=== PATIENT | male | born 1985 | race Two or more races ===

== ENCOUNTER 2024-10-18 10:17 | Emergency (ER) | payer MEDICAID, OTHER ==
[~2024-10-18] VITALS: Ht 170.2 cm; Wt 63.0 kg
[2024-10-18] MEDS: cefTRIAXone 1GM/50ML D5W 50 ML IV ONE (10:30)
--- NOTE | 2024-10-18 10:55 | ED.PDOC ---
History of Present Illness HPI Comments 39M presents to the ER w/ prior Hx of Jaw Sx "recently" and was associated to the c/c of jaw pain. Pt reports that he was at [facility] and was recently discharged but was never given medication to take for the jaw pain. Pt jaw is wired shut and has bilateral swelling. Pt notes that he has a follow up in 2 weeks but states that he does not remember the doctors name but has the phone number of [phone]. PMHx of High Lipids, HTN and Asthma. Denies chills, fever, N/V/D, SOB, CP or other associated symptom's, modifiers, or recent injuries or sick contact at this time. Chief Complaint: Jaw Pain Time Seen by MD: 10:45 Reviewed Notes: Nurses Notes, Medications, Allergies Allergies: Coded Allergies: NO KNOWN ALLERGIES (Unverified , 10/18/24) Information Source: Patient Mode of Arrival: Ambulatory Severity: Moderate Timing: Days Duration: Since onset, Days Prehospital treatment: None Past Medical History PAST MEDICAL HISTORY: Asthma, High Lipids, HTN Surgical History: Denies all surgeries Family History Family History: Reviewed,noncontributory to illness, Unknown Social History Smoker: Non-Smoker Alcohol: Denies ETOH Use Drugs: Denies Drug Use Lives In: Home Constitutional: denies: chills, diaphoresis, fatigue, fever, malaise, sweats, weakness, others EENTM: reports: mouth pain, mouth swelling; denies: blurred vision, double vision, ear bleeding, ear discharge, ear drainage, ear pain, ear ringing, eye pain, eye redness, hearing loss, nasal discharge, nose bleeding, nose congestion, nose pain, photophobia, tearing, throat pain, throat swelling, voice changes, others Respiratory: denies: cough, hemoptysis, orthopnea, SOB at rest, shortness of breath, SOB with excertion, stridor, wheezing, others Cardiovascular: denies: chest pain, dizzy spells, diaphoresis, Dyspnea on exertion, edema, irregular heart beat, left arm pain, lightheadedness, palpitations, PND, syncope, others Gastrointestinal: denies: abdomen distended, abdominal pain, blood streaked bowels, constipated, diarrhea, dysphagia, difficulty swallowing, hematemesis, melena, nausea, poor appetite, poor fluid intake, rectal bleeding, rectal pain, vomiting, others Genitourinary: denies: burning, dysuria, flank pain, frequency, hematuria, incontinence, penile discharge, penile sore, pain, testicle pain, testicle swelling, urgency, others Neurological: denies: dizziness, fainting, headache, left sided numbness, left sided weakness, numbness, paresthesia, pre-existing deficit, right sided numbness, right sided weakness, seizure, speech problems, tingling, tremors, weakness, others Musculoskeletal: denies: back pain, gout, joint pain, joint swelling, muscle pain, muscle stiffness, neck pain, others Integumetry: denies: bruises, change in color, change in hair/nails, dryness, laceration, lesions, lumps, rash, wounds, others Allergic/Immunocompromised: denies: Difficulty Healing, Frequent Infections, Hives, Itching, others Hematologic/Lymphatic: denies: anemia, blood clots, easy bleeding, easy bruising, swollen glands, others Endocrine: denies: excessive hunger, excessive sweating, excessive thirst, excessive urination, flushing, intolerance to cold, intolerance to heat, unexplained weight gain, unexplained weight loss, others Psychiatric: denies: anxiety, bipolar disorder, depression, hopeless, panic disorder, schizophrenia, sleepless, suicidal, others All Other Systems: Reviewed and Negative Physical Exam Exam Comments Jaw is wired shut and bilateral mandibular swelling General Appearance: No Apparent Distress, Normal HEENT: Normal ENT Inspection, Pharynx Normal, TMs Normal Neck: Full Range of Motion, Non-Tender, Normal, Normal Inspection Respiratory: Chest Non-Tender, Lungs Clear, No Accessory Muscle Use, No Respiratory Distress, Normal Breath Sounds Cardiovascular: No Edema, No JVD, No Murmur, No Gallop, Normal Peripheral Pulses, Regular Rate/Rhythm Breast Exam: Deferred Gastrointestinal: No Organomegaly, Non Tender, No Pulsatile Mass, Normal Bowel Sounds, Soft Genitalia: Deferred Pelvic: Deferred Rectal: Deferred Extremities: No calf tenderness, Normal capillary refill, Normal inspection, Normal range of motion, Non-tender, No pedal edema Musculoskeletal : Apperance: Normal Neurologic: Alert, radiographer angiogram II-XII nml as Tested, No Motor Deficits, Normal Affect, Normal Mood, No Sensory Deficits Cerebellar Function: Normal Reflexes: Normal Skin: Dry, Normal Color, Warm Lymphatic: No Adenopathy Was a procedure done? Was a procedure done?: No Differential Dx Considerations may include: mandibular osteomyelitis, postop abscess of mandible, postop cellulitis of mandible, post op evaluation X-Ray, Labs, Meds, VS Vital Signs Date Time Temp Pulse Resp B/P (MAP) Pulse Ox O2 Delivery O2 Flow Rate FiO2 10/18/24 12:25 97.9 70 18 159/96 (117) 95 97.9 10/18/24 12:25 70 18 95 Room Air 10/18/24 10:48 98.0 74 18 127/92 (104) 97 Lab Test 10/18/24 10:39 Range/Units White Blood Count 7.7 4.4-10.8 10^3/uL Red Blood Count 6.19 H 4.5-5.90 10^6/uL Hemoglobin 13.5 13.5-17.5 g/dL Hematocrit 41.3 41.0-53.0 % Mean Corpuscular Volume 66.7 L 80.0-100.0 fL Mean Corpuscular Hemoglobin 21.8 L 28.0-32.0 pg Mean Corpuscular Hemoglobin Concent 32.7 32.0-36.0 g/dL Red Cell Distribution Width 15.3 H 11.8-14.3 % Platelet Count 207 140-450 10^3/uL Mean Platelet Volume 9.1 6.9-10.8 fL Neutrophils (%) (Auto) 73.3 37.0-80.0 % Lymphocytes (%) (Auto) 16.0 10.0-50.0 % Monocytes (%) (Auto) 9.8 0.0-12.0 % Eosinophils (%) (Auto) 0.5 0.0-7.0 % Basophils (%) (Auto) 0.4 0.0-2.0 % Neutrophils # (Auto) 5.7 1.6-8.6 10 ^3/uL Lymphocytes # (Auto) 1.2 0.4-5.4 10 ^3/uL Monocytes # (Auto) 0.8 0-1.3 10 ^3/uL Eosinophils # (Auto) 0 0-0.8 10 ^3/uL Basophils # (Auto) 0 0-0.2 10 ^3/uL Nucleated Red Blood Cells 0.1 % Sodium Level 137 136-145 mmol/L Potassium Level 4.3 3.5-5.1 mmol/L Chloride Level 103 98-107 mmol/L Carbon Dioxide Level 27 20-31 mmol/L Anion Gap 7 5-15 Blood Urea Nitrogen 13 9-23 mg/dL Creatinine 1.08 0.700-1.30 mg/dL Glomerular Filtration Rate Calc 90 >90 mL/min BUN/Creatinine Ratio 12.0 10.0-20.0 Serum Glucose 92 74-106 mg/dL Calcium Level 9.9 8.7-10.4 mg/dL Current Medications Medications (Trade) Dose Ordered Sig/Inés Route Start Time Stop Time Status Last Admin Ceftriaxone Sodium 50 ml @ 100 mls/hr ONCE ONCE IV 10/18/24 10:30 10/18/24 11:00 DC 10/18/24 10:30 Time of 1ST Reevaluation: 11:15 Reevaluation 1ST: Unchanged Patient Education/Counseling: Diagnosis, Treatment, Prognosis, Need For Follow Up Family Education/Counseling: No Family Present Additional Information - The following tests were ordered, and results were reviewed by me: LAB - I reviewed and agreed with the following test results read by other provider: CT Radiologist - I discussed treatments and results with medical personnel and: (consultants, family): none pt reports pain and swelling of the jaw since the fixation. however the work up including the CT is unremarkable. pt is stable for discharge to follow up with his doctor Departure 1 Departure Time of Disposition: 14:13 Impression: Primary Impression: Postoperative pain Disposition: 01 HOME / SELF CARE / HOMELESS Condition: Good e-Prescriptions Ibuprofen (Ibuprofen) 100 Mg/5 Ml Kalie 600 MG PO Q6HP PRN for 5 Days, #600 ML Prov: MOHSEN RODRIGUEZ MD 10/18/24 Discharged With: Self Critical Care Note Critical Care Time?: No Stability Stability form required: No I personally scribed for MOHSEN RODRIGUEZ MD ([email or web address]) on 10/18/24 at 10:55. Electronically submitted by Edgar Sibley ([email or web address]). MOHSEN RODRIGUEZ MD Oct 18, 2024 10:55
[2024-10-18 10:56] LABS: Basophils # (auto) 0 10 ^3/uL (0-0.2); Eosinophils # (auto) 0 10 ^3/uL (0-0.8); Monocytes # (auto) 0.8 10 ^3/uL (0-1.3); Neutrophils # (auto) 5.7 10 ^3/uL (1.6-8.6); Nucleated Red Blood Cells % 0.1 %
[2024-10-18 10:58] LABS: Basophils % (auto) 0.4 % (0.0-2.0); Eosinophils % (auto) 0.5 % (0.0-7.0); Hematocrit 41.3 % (41.0-53.0); Hemoglobin 13.5 g/dL (13.5-17.5); Lymphocytes # (auto) 1.2 10 ^3/uL (0.4-5.4); Mean Corpuscular Hemoglobin 21.8 pg (28.0-32.0); Mean Corpuscular Hgb Conc. 32.7 g/dL (32.0-36.0); Mean Corpuscular Volume 66.7 fL (80.0-100.0); Monocytes % (auto) 9.8 % (0.0-12.0); Neutrophils % (auto) 73.3 % (37.0-80.0); Platelet Count (auto) 207 10^3/uL (140-450); Red Blood Cells 6.19 10^6/uL (4.5-5.90); Red Cell Distribution Width 15.3 % (11.8-14.3); White Blood Cell 7.7 10^3/uL (4.4-10.8)
[2024-10-18 11:14] LABS: Chloride 103 mmol/L (98-107); Potassium 4.3 mmol/L (3.5-5.1); Sodium 137 mmol/L (136-145)
[2024-10-18 11:16] LABS: Calcium 9.9 mg/dL (8.7-10.4)
[2024-10-18 11:20] LABS: Blood Urea Nitrogen 13 mg/dL (9-23); Glucose 92 mg/dL (74-106)
[2024-10-18 11:49] LABS: Anion Gap 7 (5-15); Carbon Dioxide 27 mmol/L (20-31)
[2024-10-18] MEDS: IOHEXOL 300 MG/ML 100ML BOTTLE IJ ONE (13:04)
--- NOTE | 2024-10-18 13:20 | DVH ---
Procedure: CT MAXILLOFACIAL WITH Study Date and Requested Time: 10/18/2024 12:46 PM History: r/o abscess, osteomyelitis Comparison: 10/15/2024 report only Dose: CTDI: 65.81 mGy DLP: 1159.19 mGycm Technique: Multiplanar images obtained through the face without intravenous contrast. Findings: There is acute fracture through the left angle of the mandible and right anterior body of the mandibl e status post surgical fixation. There is diffuse mandibular soft tissue edema with mild asymmetric prominence of the left masseter mu scle which may be associated with the postsurgical changes. There is left-sided perimandibular subcut aneous emphysema. No localized fluid collection is noted. No significant lymphadenopathy. The parotid and submandibular glands unremarkable. The nasopharynx, oropharynx and hypopharynx are unremarkable. Small mucous retention cysts within the maxillary sinuses. The remainder of the paranasal sinuses an d mastoids are clear. Impression: There is acute fracture through the left angle of the mandible and right anterior mandibular body sta tus post surgical fixation. There is mandibular soft tissue edema with left-sided perimandibular subcutaneous emphysema which may be related to the recent surgery and injury. No abscess is visualized. No erosive bony changes to suggest osteomyelitis.
[2024-10-18] MEDS ORDERED: IBUP-1829 PO (14:16)
[2024-10-18] MEDS: HYDROcodone-ACET 5/325MG TAB PO ONE (14:44)
[2024-10-18 14:46] VITALS: BP 146/93; PULSE 72; RESP 17; TEMP 98.4; O2SAT 98
[2024-10-18] MEDS: IBUPROFEN 100MG/5ML ORAL SUSP 100 MG/5 ML UD PO ONE (14:50)
== END 2024-10-18 15:01 | disposition home or self-care (01) ==
LOC: ER 10:17
DX: G89.18 Other acute postprocedural pain (principal); J45.909 Unspecified asthma, uncomplicated; E78.5 Hyperlipidemia, unspecified; I10 Essential (primary) hypertension
CPT/HCPCS: 36415; 70487; 80048; 85025; 96365; 96366; 99285; J0696; Q9967